=== PATIENT | male | born 1975 | race Caucasian/White ===

== ENCOUNTER 2024-04-04 19:51 | Emergency (ER) | payer SELFPAY ==
[2024-04-04] MEDS: Ondansetron 4 MG/2 ML SDV IVPUSH ONE (20:07)
[2024-04-04] MEDS: Morphine 2 MG/ML SYRINGE IVPUSH ONE (20:10)
[2024-04-04] MEDS: ceFAZolin 2 GM in Sodium Chloride 0.9% 50 ML IV ONE (20:12)
[2024-04-04] MEDS: Diphtheria,Pertussis(Acell),Tetanus Vaccine 0.5 ML Syringe IM ONE (20:20)
[2024-04-04] MEDS: Lidocaine 2% with EPINEPHrine 1:200,000 20 ML SDV INJECT ONE (21:14)
[2024-04-04] MEDS: Acetaminophen/oxyCODONE 325-5 MG Tab PO ONE (21:33)
[2024-04-04] MEDS: Lidocaine 1% with EPINEPHrine 1:100,000 10 ML MDV INJECT ONE (21:52)
== END 2024-04-04 21:12 | disposition home or self-care (01) ==
LOC: MW.ED 19:51
DX: S68.115A Complete traumatic metacarpophalangeal amputation of left ring finger, initial encounter (principal); W20.8XXA Other cause of strike by thrown, projected or falling object, initial encounter; Z75.8 Other problems related to medical facilities and other health care; Z23 Encounter for immunization
CPT/HCPCS: 73140; 90471; 90715; 96365; 96375; 99283; A9270; J0690; J2270; J2405; J3490